=== PATIENT | male | born 1945 | race Caucasian/White ===

== ENCOUNTER → 2021-09-23 | Outpatient (CLI) | payer MEDICARE ==
[~2021-09-23] MED LIST: PERCOCET 10-321 EACH PO
== END ==
LOC: HEART CORB 14:30
DX: I10 Essential (primary) hypertension (principal); I48.91 Unspecified atrial fibrillation; G47.33 Obstructive sleep apnea (adult) (pediatric); R06.02 Shortness of breath; I27.20 Pulmonary hypertension, unspecified; I08.3 Combined rheumatic disorders of mitral, aortic and tricuspid valves
CPT/HCPCS: 93306

== ENCOUNTER → 2021-10-21 | Outpatient (CLI) | payer MEDICARE | LOC: HEART CORB 09:57 | DX: R07.2 Precordial pain (principal); R06.02 Shortness of breath | CPT/HCPCS: 78452; A9502; J2785 ==

== ENCOUNTER → 2022-02-18 | Outpatient (CLI) | payer MEDICARE, OTHER | LOC: EXRD 09:04 | DX: Z13.820 Encounter for screening for osteoporosis (principal) | CPT/HCPCS: 77080 ==

== ENCOUNTER → 2022-05-12 | Outpatient (CLI) | payer MEDICARE, OTHER | LOC: KOH-I 10:27 | DX: E78.5 Hyperlipidemia, unspecified (principal); I10 Essential (primary) hypertension; R91.1 Solitary pulmonary nodule; E53.8 Deficiency of other specified B group vitamins; E55.9 Vitamin D deficiency, unspecified | CPT/HCPCS: 71250 ==